=== PATIENT | female | born 1995 | race African-American/Black ===

== ENCOUNTER 2017-01-02 19:59 | Emergency (ER) | payer OTHER ==
[2017-01-02 20:04] VITALS: BP 127/76; PULSE 68; TEMP 98.1; BMI 32.8
[2017-01-02] MEDS ORDERED: IBUPROFEN 600 MG TABLET (FP) PO ONE ×2 (20:16→20:19)
--- NOTE | 2017-01-02 20:34 | PDOC ---
History of Present Illness - General Chief Complaint: Pain Stated Complaint: CHEST PAIN Time Seen by Provider: 01/02/17 20:07 History Source: Patient Exam Limitations: No Limitations - History of Present Illness Initial Comments: 01/02/17 20:20 21-year-old female presents to the ED with complaints of right-sided chest discomfort worsened with movement and deep breathing. Patient states yesterday was lifting up a window that was stuck that kicked out causing her to strain her muscles in order to keep it from falling. Patient denies difficulty breathing, palpitations, dizziness, or medical history. patient states took 200 mg of Motrin with no improvement Timing/Duration: 24 hours Severity: moderate Associated Symptoms: reports: chest pain Past History - Past Medical History Allergies/Adverse Reactions: Allergies Allergy/AdvReac Type Severity Reaction Status Date / Time No Known Allergies Allergy Verified 01/02/17 20:04 Home Medications: Ambulatory Orders Ibuprofen [Motrin -] 600 mg PO Q6H PRN #15 tablet 12/06/15 Other medical history: denies - Reproductive History LMP Normal: Yes Is Patient Now?: No - Immunization History Immunization Up to Date: Yes - Psycho/Social/Smoking Cessation Hx Anxiety: No Suicidal Ideation: No Smoking History: Never smoked Hx Alcohol Use: No Drug/Substance Use Hx: No Substance Use Type: None Patient Lives Alone: No Lives with/in: parents Review of Systems - Review of Systems Able to Perform ROS?: Yes Constitutional: No: Symptoms Reported Respiratory: No: Symptoms reported Cardiac (ROS): No: Symptoms Reported ABD/GI: No: Nausea Musculoskeletal: Yes: Muscle Pain (right chest) Integumentary: No: Symptoms Reported *Physical Exam - Vital Signs Last Vital Signs Temp Pulse Resp BP Pulse Ox 98.1 F 68 18 127/76 99 01/02/17 20:01 01/02/17 20:01 01/02/17 20:01 01/02/17 20:01 01/02/17 20:01 - Physical Exam General Appearance: Yes: Nourished, Appropriately Dressed. No: Apparent Distress Neck: negative: Tender, Supple, Decreased range of motion Respiratory/Chest: positive: Chest Tender (over the second intercostal space on the right strenal border. ), Lungs Clear, Normal Breath Sounds. negative: Respiratory Distress, Accessory Muscle Use Cardiovascular: positive: Regular Rhythm, Regular Rate. negative: Murmur Integumentary: positive: Normal Color, Warm, Moist Neurologic: positive: Motor Strength 5/5 (ambulatory) Medical Decision Making - Medical Decision Making 01/02/17 20:22 Patient right chest muscle strain after exerting herself yesterday. He should have reproducible pain to the right upper chest wall. Patient given Motrin and will discharge home. *DC/Admit/Observation/Transfer Diagnosis at time of Disposition: Strain of right pectoralis muscle Qualifiers: Encounter type: initial encounter Qualified Code(s): S29.011A - Strain of muscle and tendon of front wall of thorax, initial encounter - Discharge Dispostion Disposition: HOME Condition at time of disposition: Good - Referrals Referrals: Marifer Tloedo MD [Primary Care Provider] - - Patient Instructions Printed Discharge Instructions: DI for Muscle Strain Additional Instructions: Please take 600 mg of Motrin every 8 hours for discomfort. Avoid movements that trigger discomfort and apply ice to the affected area as much as you can tolerate for the next 3 days.
== END 2017-01-02 21:14 | disposition home or self-care (01) ==
LOC: JERFT 19:59
DX: S29.011A Strain of muscle and tendon of front wall of thorax, initial encounter (principal); X58.XXXA Exposure to other specified factors, initial encounter; Y93.89 Activity, other specified; Y92.9 Unspecified place or not applicable
CPT/HCPCS: 99281-25

== ENCOUNTER 2017-12-05 09:53 | Emergency (ER) | payer SELFPAY ==
[2017-12-05 09:58] VITALS: BP 113/64; PULSE 80; TEMP 98.8; BMI 35.0
--- NOTE | 2017-12-05 10:25 | PDOC ---
History of Present Illness - General Chief Complaint: Sore Throat Stated Complaint: THROAT PAIN Time Seen by Provider: 12/05/17 10:07 History Source: Patient Exam Limitations: No Limitations - History of Present Illness Initial Comments: 12/05/17 10:20 32-year-old female no past medical history presents the ED with complaints of sore throat along with low-grade temp that began 2 days ago. 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 Patient has no complaints of headache, chest pain , shortness of breath or cough. Timing/Duration: other Severity: mild Associated Symptoms: reports: fever/chills Past History - Travel Traveled outside of the country in the last 30 days: No - Past Medical History Allergies/Adverse Reactions: Allergies Allergy/AdvReac Type Severity Reaction Status Date / Time No Known Allergies Allergy Verified 12/05/17 09:58 COPD: No - Immunization History Immunization Up to Date: Yes - Suicide/Smoking/Psychosocial Hx Smoking History: Never smoked Hx Alcohol Use: No Drug/Substance Use Hx: No Substance Use Type: None Patient Lives Alone: No Lives with/in: parents Review of Systems - Review of Systems Constitutional: Yes: Fever HEENTM: Yes: Throat Pain, Difficulty Swallowing Respiratory: No: Symptoms reported Cardiac (ROS): No: Symptoms Reported ABD/GI: No: Symptoms Reported Musculoskeletal: No: Symptoms Reported Integumentary: No: Symptoms Reported Neurological: No: Headache *Physical Exam - Vital Signs Last Vital Signs Temp Pulse Resp BP Pulse Ox 98.8 F 80 18 113/64 99 12/05/17 09:56 12/05/17 09:56 12/05/17 09:56 12/05/17 09:56 12/05/17 09:56 - Physical Exam General Appearance: Yes: Nourished, Appropriately Dressed. No: Apparent Distress HEENT: positive: EOMI, TMs Normal, Pharyngeal Erythema (noted petechiae to soft posterior palate), Tonsillar Erythema Neck: positive: Normal Thyroid, Supple. negative: Lymphadenopathy (R), Lymphadenopathy (L) Respiratory/Chest: positive: Lungs Clear, Normal Breath Sounds. negative: Respiratory Distress, Accessory Muscle Use Cardiovascular: positive: Regular Rhythm, Regular Rate. negative: Murmur Integumentary: positive: Normal Color, Warm, Moist Neurologic: positive: Motor Strength 5/5 (ambulatory) Medical Decision Making - Medical Decision Making 12/05/17 10:23 Patient with sore throat and fever for the past few days. Patient with recent sick contacts which were diagnosed with strep. Patient based on clinical exam will be treated for strep pharyngitis. *DC/Admit/Observation/Transfer Diagnosis at time of Disposition: Strep pharyngitis - Discharge Dispostion Disposition: HOME Condition at time of disposition: Good - Referrals Referrals: Marifer Toledo MD [Primary Care Provider] - - Patient Instructions Printed Discharge Instructions: DI for Strep Throat Additional Instructions: Take antibiotics as prescribed until completed. Please drink plenty of fluids and take Motrin or Tylenol every 6-8 hours for adequate fever and pain control. - Post Discharge Activity
== END 2017-12-05 10:30 | disposition home or self-care (01) ==
LOC: JERFT 09:53
DX: J02.0 Streptococcal pharyngitis (principal); B95.5 Unspecified streptococcus as the cause of diseases classified elsewhere
CPT/HCPCS: 99281-25

== ENCOUNTER 2025-02-09 11:59 | Emergency (ER) | payer SELFPAY ==
[2025-02-09 12:06] VITALS: BP 114/75; PULSE 84; RESP 18; TEMP 98.6; BMI 35.8
[2025-02-09] MEDS ORDERED: IBUPROFEN 600 MG TABLET (FP) PO ONE ×2 (12:42→12:44)
[2025-02-09] MEDS: IBUPROFEN 600 MG TABLET (FP) PO ONE (12:42)
== END 2025-02-09 13:48 | disposition home or self-care (01) ==
LOC: JER 11:59
DX: N64.4 Mastodynia (principal)
CPT/HCPCS: 76642-TC-LT; 99284-25